=== PATIENT | female | born 1965 | race Caucasian/White ===

== ENCOUNTER 2021-05-04 08:21 | Outpatient (CLI) | payer BC | END 2021-05-04 08:22 | disposition home or self-care (01) | LOC: CSHMAMMO 08:21 | PROVIDERS: ATTEND Family Medicine | DX: Z12.31 Encounter for screening mammogram for malignant neoplasm of breast (principal); Z91.89 Other specified personal risk factors, not elsewhere classified; Z80.3 Family history of malignant neoplasm of breast | CPT/HCPCS: 77063; 77067 ==

== ENCOUNTER 2022-06-22 08:34 | Outpatient (CLI) | payer BC | END 2022-06-22 08:35 | disposition home or self-care (01) | LOC: CSHMAMMO 08:34 | PROVIDERS: ATTEND Family Medicine | DX: Z12.31 Encounter for screening mammogram for malignant neoplasm of breast (principal); Z91.89 Other specified personal risk factors, not elsewhere classified; Z80.3 Family history of malignant neoplasm of breast | CPT/HCPCS: 77063; 77067 ==